=== PATIENT | female | born 1980 | race Caucasian/White ===

== ENCOUNTER 2021-12-29 02:03 | Emergency (ER) | payer MEDICAID, SELFPAY ==
[2021-12-29 02:11] VITALS: BP 145/101; PULSE 59; RESP 16; TEMP 36.6; O2SAT 97; BMI 40.7
--- NOTE | 2021-12-29 02:18 | CRLHL7_ITS ---
For Patients: As a result of the Century Cures Act, medical imaging exams and procedure reports are released immediately into your electronic medical record. You may view this report before your referring provider. If you have questions, please contact your health care provider. Indication: Flank pain Technique: Noncontrast CT abdomen and pelvis Comparison: CT abdomen and pelvis 12/23/2019 Findings: Heart size is normal. No pericardial effusion lung bases are clear. Spleen liver appears unremarkable cholecystectomy. Adrenal glands pancreas unremarkable. Normal caliber abdominal aorta. Right kidney unremarkable. Small nonobstructing left lower pole calculus. Moderate hydronephrosis and hydroureter with a 5 millimeter stone in the distal left ureter just proximal to the UVJ. Urinary bladder decompressed. No suspicious bony lesions. Impression: 1. Moderate left hydronephrosis and hydroureter with a 5 millimeter stone in the left distal ureter just proximal to the UVJ. Please note that all CT scans at this facility use dose modulation, iterative reconstruction, and/or weight-based dosing when appropriate to reduce radiation dose to as low as reasonably achievable. Dictated by Erica Velázquez MD @ 12/29/2021 3:52:22 AM (Electronically Signed)
[2021-12-29 02:27] LABS: Lactate* 0.8 mmol/L (0.5-1.9)
[2021-12-29 02:29] LABS: Basophils Absolute Auto 0.05 K/uL (0.00-0.30); Basophils Percent Auto 0.6 % (0.0-3.0); Eosinophils Absolute Auto 0.27 K/uL (0.00-0.50); Hematocrit 36.8 % (33.0-51.0); Hemoglobin* 12.8 gm/dL (12.0-16.0); Immature Granulocytes Abs Auto 0.04 K/uL (0.00-0.30); Lymphocytes Absolute Auto 2.86 K/uL (0.90-2.90); Lymphocytes Percent Auto 31.7 % (20-44); Mean Corpuscular HGB Conc 35 gm/dL (32-36); Mean Corpuscular Hemoglobin 28 pg (26-34); Mean Corpuscular Volume 81 fL (80-100); Monocytes Percent Auto 7.9 % (0.0-11.0); Neutrophils Percent Auto 56.4 % (42.0-72.0); Platelet Count* 336 K/uL (140-440); Red Blood Count 4.54 m/uL (4.00-5.20); White Blood Count* 9.03 K/uL (4.50-11.00)
[2021-12-29 02:30] LABS: Slide Review Reflex No
[2021-12-29] MEDS: ONDANSETRON 2 MG/ML inj 4 MG IVP (02:30)
[2021-12-29] MEDS: KETOROLAC 15 MG/ML inj IVP (02:30)
[2021-12-29] MEDS: 0.9 % SODIUM CHLORIDE 1000 ml 1,000 ML IV (02:31)
--- NOTE | 2021-12-29 02:31 | ED.GENADULT ---
HPI - General Adult General Date Seen: 12/29/21 Chief complaint: Flank Pain Stated complaint: Back pain radiating to abdominal Time Seen by Provider: 12/29/21 02:06 Source: patient History of Present Illness HPI narrative: Patient is a 41-year-old woman who presents with left flank pain with radiation to the left lower abdomen. Pain started on Monday, she presents in the middle of the night Monday for evaluation secondary to worsening of pain and development of associated vomiting. She says last time she had pain like this it was because of a kidney stone. Initially she thought it was related to menstrual pain because she started her period on Monday, but because it has gotten were she no longer thinks that. She has not had any associated urinary symptoms such as dysuria or frequency. She has not had fevers. She has not had diarrhea, black or bloody stools. No suspicion of . Pain is now severe and colicky. She has tried ibuprofen but that has not been significantly helpful. Related Data Home Medications Medication Instructions Recorded Confirmed dextroamphetamine-amphetamine 20 12/29/21 mg tablet Previous Rx's Medication Instructions Recorded tamsulosin 0.4 mg capsule (Flomax) 0.4 mg PO DAILY #10 caps 12/29/21 tamsulosin 0.4 mg capsule (Flomax) 0.4 mg PO DAILY #14 caps 12/29/21 Allergies Allergy/AdvReac Type Severity Reaction Status Date / Time No Known Drug Allergies Allergy Verified 12/29/21 02:13 Review of Systems Status of ROS: Reports: 10 or more systems reviewed and unremarkable except as noted in History and below [facility] Medical History Kidney stones Ovarian cyst Surgical History History of cholecystectomy Social History Smoking Status: Never smoker Do you use any of these nicotine containing products: None How often do you have a drink containing alcohol: never AUDIT-C Alcohol total score: 0 Non-prescribed substance use: denies use Exam Narrative: Exam Narrative: Vital signs as noted above. In general, an alert, nontoxic woman. Looks uncomfortable. Head: Normocephalic, atraumatic. Eyes: Pupils are equal reactive. Extraocular movements are full. Conjunctivae are normal. ENT: Mucous membranes are moist. Throat is normal. Neck: Supple without lymphadenopathy. Heart: Regular rate and rhythm. No murmur or rub. Lungs: Clear bilaterally. No increased work of breathing, crackles or wheezes. Abdomen: Diffuse left-sided tenderness without rebound guarding or rigidity. Bowel sounds present. Extremities: Well perfused. No edema. No calf tenderness. Pulses intact. Neurologic: Patient is alert and oriented to person and place. Speech is fluent. Face is symmetric. Moves all extremities equally. Affect: Normal. Skin: Warm and dry. Well perfused. Const: Vital Signs, click to edit/add: Vital Signs - 24 hr 12/29/21 02:11 Temperature 97.8 F Pulse Rate [Right Pulse Oximeter] 59 L Respiratory Rate 16 Blood Pressure [Ri ght Upper Arm] 145/101 H Pulse Oximetry 97 Oxygen Delivery Me thod Room Air Course Course Hospital Course: Will place an IV, obtain a urine specimen when able. Toradol and Zofran as well as a L of fluids to start. Will add additional medication as needed, but patient did drive here. CT scan without contrast. At this time would suspect possible kidney stone, review records shows a CT scan from 2019 at which time she did have a nonobstructing stone in the left kidney. Other considerations would include diverticulitis, colitis, bowel obstruction, pyelonephritis, ovarian pathology such as torsion, ruptured cyst, ectopic , gastritis, peptic ulcer disease, pancreatitis. Less likely gallbladder pathology, appendicitis given left-sided pain. test and UA pending. Other labs including CBC, metabolic panel, lipase, LFTs, CRP and lactate. CT scan by my review showed left-sided hydronephrosis and a 5 mm stone at the UVJ. Final radiology report is as follows:Impression: 1. Moderate left hydronephrosis and hydroureter with a 5 millimeter stone in the left distal ureter just proximal to the UVJ. Labs are reassuring. Urinalysis is negative aside from 10-25 red blood cells, squames and a few bacteria but only 2-5 white blood cells. white blood cells. There is 1+ bilirubin, but LFTs are normal as is lipase. CBC and metabolic panel are normal, as are lactate and CRP. Discussed with her that the kidney stone is on the borderline of where it will likely not pass on its own. I have prescribed Flomax and will have her push fluids and strain urine, but I have asked her to make a follow-up urology appointment tomorrow and if she does not pass the stone in the next few days will have her follow-up as an outpatient. Return at any time for severe uncontrolled pain, new symptoms such as fever chills. Ibuprofen 400 mg 3 times daily, oxycodone and Zofran as needed for symptomatic relief. Vital Signs Vital signs: Initial Vital Signs Temperature 97.8 F 12/29/21 02:11 Temperature Source Temporal Artery Scan 12/29/21 02:11 Pulse Rate 59 L 12/29/21 02:11 Pulse Rhythm 12/29/21 02:11 Respiratory Rate 16 12/29/21 02:11 Blood Pressure 145/101 H 12/29/21 02:11 Blood Pressure Mean 115 12/29/21 02:11 Blood Pressure Position Sitting 12/29/21 02:11 Pulse Oximetry 97 12/29/21 02:11 Oxygen Delivery Method 12/29/21 02:11 Vital Signs Temperature 97.8 F 12/29/21 02:11 Pulse Rate 59 L 12/29/21 02:11 Respiratory Rate 16 12/29/21 02:11 Blood Pressure 145/101 H 12/29/21 02:11 Pulse Oximetry 97 12/29/21 02:11 Oxygen Delivery Method 12/29/21 02:11 Temperature 97.8 F 12/29/21 02:11 Pulse Rate 59 L 12/29/21 02:11 Respiratory Rate 16 12/29/21 02:11 Blood Pressure 145/101 H 12/29/21 02:11 Pulse Oximetry 97 12/29/21 02:11 Oxygen Delivery Method 12/29/21 02:11 Medical Decision Making Lab Data Labs: Lab Results 12/29/21 12/29/21 12/29/21 Range/Units 02:23 02:23 02:23 WBC 9.03 (4.50-11.00) K/uL RBC 4.54 (4.00-5.20) m/uL Hgb 12.8 (12.0-16.0) gm/dL Hct 36.8 (33.0-51.0) % MCV 81 (80-100) fL MCH 28 (26-34) pg MCHC 35 (32-36) gm/dL RDW Coeff of Allen 12.0 (11.5-15.5) % Plt Count 336 (140-440) K/uL Neut % (Auto) 56.4 (42.0-72.0) % Lymph % (Auto) 31.7 (20-44) % [place] % (Auto) 7.9 (0.0-11.0) % Eos % (Auto) 3.0 (0.0-7.0) % Baso % (Auto) 0.6 (0.0-3.0) % Neut # (Auto) 5.10 (1.7-7.0) K/uL Lymph # (Auto) 2.86 (0.90-2.90) K/uL [place] # (Auto) 0.70 (0.00-0.90) K/UL Eos # (Auto) 0.27 (0.00-0.50) K/uL Baso # (Auto) 0.05 (0.00-0.30) K/uL Abs Immat Gran (auto) 0.04 (0.00-0.30) K/uL Sodium 139 (135-149) mmol/L Potassium 3.6 (3.6-5.1) mmol/L Chloride 106 (96-114) mmol/L Carbon Dioxide 24 (20-32) mmol/L BUN 20 (5-24) mg/dL Creatinine 0.8 (0.5-1.5) mg/dL Estimated Creat Clear 78.10 Estimated GFR 96 ml/min Glucose 117 H (60-115) mg/dL Lactate (0.5-1.9) mmol/L Calcium 8.9 (8.4-10.6) mg/dL Total Bilirubin 0.4 (0.1-1.5) mg/dL Direct Bilirubin 0.2 (0.0-0.5) mg/dL AST 26 (12-35) U/L ALT 20 (4-35) U/L Alkaline Phosphatase 69 (40-150) U/L C-Reactive Protein 0.8 (0.5-1.0) mg/dL Total Protein 7.4 (6.0-8.3) g/dL Albumin 4.2 (3.3-5.0) g/dL Lipase 104 (23-300) U/L Urine Color (Yellow) Urine Appearance (Clear) Urine pH (5.0-8.5) Ur Specific [place] (1.000-1.030) Urine Protein (Negative) Urine Glucose (UA) (Negative) Urine Ketones (Negative) Urine Blood (Negative) Urine Nitrite (Negative) Urine Bilirubin (Negative) Urine Urobilinogen (0.2-1.0) Ur Leukocyte Esterase (Negative) Urine RBC (0-2) Urine WBC (0-5) Ur Squamous Epith Cells (None-Few) Amorphous Sediment (None) Urine Bacteria (None) Urine HCG, Qual (Negative) 12/29/21 12/29/21 Range/Units 02:23 03:22 WBC (4.50-11.00) K/uL RBC (4.00-5.20) m/uL Hgb (12.0-16.0) gm/dL Hct (33.0-51.0) % MCV (80-100) fL MCH (26-34) pg MCHC (32-36) gm/dL RDW Coeff of Allen (11.5-15.5) % Plt Count (140-440) K/uL Neut % (Auto) (42.0-72.0) % Lymph % (Auto) (20-44) % [place] % (Auto) (0.0-11.0) % Eos % (Auto) (0.0-7.0) % Baso % (Auto) (0.0-3.0) % Neut # (Auto) (1.7-7.0) K/uL Lymph # (Auto) (0.90-2.90) K/uL [place] # (Auto) (0.00-0.90) K/UL Eos # (Auto) (0.00-0.50) K/uL Baso # (Auto) (0.00-0.30) K/uL Abs Immat Gran (auto) (0.00-0.30) K/uL Sodium (135-149) mmol/L Potassium (3.6-5.1) mmol/L Chloride (96-114) mmol/L Carbon Dioxide (20-32) mmol/L BUN (5-24) mg/dL Creatinine (0.5-1.5) mg/dL Estimated Creat Clear Estimated GFR ml/min Glucose (60-115) mg/dL Lactate 0.8 (0.5-1.9) mmol/L Calcium (8.4-10.6) mg/dL Total Bilirubin (0.1-1.5) mg/dL Direct Bilirubin (0.0-0.5) mg/dL AST (12-35) U/L ALT (4-35) U/L Alkaline Phosphatase (40-150) U/L C-Reactive Protein (0.5-1.0) mg/dL Total Protein (6.0-8.3) g/dL Albumin (3.3-5.0) g/dL Lipase (23-300) U/L Urine Color Yellow (Yellow) Urine Appearance Cloudy A (Clear) Urine pH 5.5 (5.0-8.5) Ur Specific [place] >= 1.030 (1.000-1.030) Urine Protein 2+ A (Negative) Urine Glucose (UA) Negative (Negative) Urine Ketones Negative (Negative) Urine Blood 3+ A (Negative) Urine Nitrite Negative (Negative) Urine Bilirubin 1+ A (Negative) Urine Urobilinogen 0.2 (0.2-1.0) Ur Leukocyte Esterase Negative (Negative) Urine RBC 10-25 A (0-2) Urine WBC 2-5 (0-5) Ur Squamous Epith Cells Moderate A (None-Few) Amorphous Sediment Moderate A (None) Urine Bacteria Few A (None) Urine HCG, Qual Negative (Negative) Discharge Plan Discharge Clinical Impression: Kidney stone on left side Patient Disposition: Home, Self-Care Condition: Improved Instructions: Kidney Stones (ED) Additional Instructions: Ibuprofen 400 mg 3 times daily with food. Zofran if needed for nausea. Oxycodone for uncontrolled pain. Strain urine, push fluids. Your stone is about 5 mm in size, which means that there is a good chance that it will not pass on its own. You will likely need urology follow-up. You can call [place] [facility] to arrange this. Return at any time for severe uncontrolled pain or new symptoms such as fever or chills. Prescriptions: New tamsulosin [Flomax] 0.4 mg capsule 0.4 mg PO DAILY Qty: 14 2RF tamsulosin [Flomax] 0.4 mg capsule 0.4 mg PO DAILY Qty: 10 2RF No Action dextroamphetamine-amphetamine 20 mg tablet Label Comments: TAKE 1 TABLET BY MOUTH EVERY DAY Follow Up/Referrals: Joan Vallecillo PA-C [Primary Care Provider] - Stand Alone Forms: [employer] Info Instructions
[2021-12-29 02:42] LABS: Albumin* 4.2 g/dL (3.3-5.0)
[2021-12-29 02:43] LABS: Chloride* 106 mmol/L (96-114); Potassium* 3.6 mmol/L (3.6-5.1); Sodium* 139 mmol/L (135-149)
[2021-12-29 02:45] LABS: Alanine Aminotransferase* 20 U/L (4-35); Alkaline Phosphatase* 69 U/L (40-150); Aspartate Amino Transferase* 26 U/L (12-35); Bilirubin Direct* 0.2 mg/dL (0.0-0.5); Bilirubin Total* 0.4 mg/dL (0.1-1.5); Lipase* 104 U/L (23-300); Total Protein* 7.4 g/dL (6.0-8.3)
[2021-12-29 02:46] LABS: Creatinine* 0.8 mg/dL (0.5-1.5); Estimated Glomerular Filt Rate 96 ml/min
[2021-12-29 02:47] LABS: Blood Urea Nitrogen* 20 mg/dL (5-24); Calcium* 8.9 mg/dL (8.4-10.6); Carbon Dioxide* 24 mmol/L (20-32); Glucose* 117 mg/dL (60-115)
[2021-12-29 02:49] LABS: C Reactive Protein* 0.8 mg/dL (0.5-1.0)
[2021-12-29 03:28] LABS: Appearance Urine Cloudy (Clear); Bilirubin Urine 1+ (Negative); Blood Urine 3+ (Negative); Color Urine Yellow (Yellow); Glucose Urine Negative (Negative); Ketones Urine Negative (Negative); Leukocyte Esterase Urine Negative (Negative); Nitrite Urine Negative (Negative); Protein Urine 2+ (Negative); Specific Gravity Urine >= 1.030 (1.000-1.030); Urobilinogen Urine 0.2 (0.2-1.0); pH Urine 5.5 (5.0-8.5)
[2021-12-29 03:31] LABS: Amorphous Sediment Urine Moderate; Bacteria Urine Few; Squamous Epithelial Cell Urine Moderate (None-Few); Ur HCG Qualitative* Negative (Negative)
[2021-12-29 04:22] VITALS: BP 133/91; PULSE 62; RESP 16; TEMP 36.6
== END 2021-12-29 04:22 | disposition home or self-care (01) ==
PROVIDERS: Emergency Provider Emergency Medicine; PCP Physician Assistant Medical
DX: N20.0 Calculus of kidney (principal)
CPT/HCPCS: 36415; 74176; 80048; 80076; 81001; 81025; 83605; 83690; 85025; 86140; 87086; 96374; 96375; 99284; J1885; J2405; J7030

== ENCOUNTER 2021-12-30 16:50 | Emergency (ER) | payer MEDICAID, SELFPAY ==
[2021-12-30 17:00] VITALS: BP 135/80; PULSE 65; RESP 16; TEMP 37.2; O2SAT 98; BMI 40.7
--- NOTE | 2021-12-30 17:38 | ED_ITS ---
HPI - Abdominal Pain General Chief Complaint: Abdominal Pain Stated Complaint: BACK/STOMACH/PELVIC PAIN Time Seen by Provider: 12/30/21 16:59 History of Present Illness HPI narrative: This 41-year-old female comes in with recurrence of left-sided abdominal pain. She was seen yesterday and diagnosed with a 5 mm kidney stone at the ureterovesical junction. She received medication that helped her feel better yesterday. She was prescribed oxycodone but did not take this medicine today because she went to work. Toward the end of her shift she had sudden onset of severe pain and came in again in here for evaluation and treatment. At the time of her arrival here her pain is improved. Related Data Home Medications Medication Instructions Recorded Confirmed dextroamphetamine-amphetamine 20 12/29/21 mg tablet Previous Rx's Medication Instructions Recorded tamsulosin 0.4 mg capsule (Flomax) 0.4 mg PO DAILY #10 caps 12/29/21 tamsulosin 0.4 mg capsule (Flomax) 0.4 mg PO DAILY #14 caps 12/29/21 ketorolac 10 mg tablet 10 mg PO Q8H 5 days #15 tabs 12/30/21 Allergies Allergy/AdvReac Type Severity Reaction Status Date / Time No Known Drug Allergies Allergy Verified 12/29/21 02:13 Review of Systems Status of ROS Reports: 10 or more systems reviewed and unremarkable except as noted in History and below Narrative Constitutional: No fevers, no weight gain or loss. Eyes: No discharge. No vision changes. HENT: No congestion, no sore throat, no ear pain. Cardiovascular: No chest pain, no palpitations. Respiratory: No shortness of breath, no wheezes, no cough. Gastrointestinal: No vomiting, no diarrhea. Abdominal pain and flank pain Related to kidney stone. Genitourinary: No dysuria, no hematuria. Musculoskeletal: Normal range of motion. Skin: No rashes, no pruritis. Neurological: No dizziness, weakness, sensory change, speech change. Endo/Heme/Allergies: No bruising or bleeding. No polydipsia. Pysch: no suicidality, no anxiety, no insomnia. All other systems reviewed and are negative. PFSH PFSH Medical History Kidney stones Ovarian cyst Surgical History History of cholecystectomy Social History Smoking Status: Never smoker Do you use any of these nicotine containing products: None How often do you have a drink containing alcohol: never AUDIT-C Alcohol total score: 0 Non-prescribed substance use: denies use Exam Narrative: Exam Narrative: Constitutional: Well-developed, well-nourished, no acute distress. HEENT: Normocephalic, atraumatic. Neck: Normal range of motion. Nontender. Supple. Heart: Intact distal pulses. Lungs: No chest discomfort. No wheezes, rhonchi, or rales. Abdomen: Diffuse tenderness. Normal bowel sounds. No rebound tenderness. Back: Normal range of motion. Extremities: Normal range of motion. No injury. Skin: Intact. No rash. Warm. No erythema or pallor. Neurologic: No altered sensation. No weakness. Alert and oriented. Psychiatric: No suicidality. No anxiety or depression. No insomnia. Nursing notes and vitals signs are reviewed. Const: Vital Signs, click to edit/add: Vital Signs - 24 hr 12/30/21 17:00 Temperature 98.9 F Pulse Rate [Left P ulse Oximeter] 65 Respiratory Rate 16 Blood Pressure [Le ft Upper Arm] 135/80 Pulse Oximetry 98 Oxygen Delivery Me thod Room Air Course Vital Signs Vital signs: Initial Vital Signs Temperature 98.9 F 12/30/21 17:00 Temperature Source Temporal Artery Scan 12/30/21 17:00 Pulse Rate 65 12/30/21 17:00 Pulse Rhythm 12/30/21 17:00 Pulse Strength 3+ Normal 12/30/21 17:00 Respiratory Rate 16 12/30/21 17:00 Blood Pressure 135/80 12/30/21 17:00 Blood Pressure Mean 98 12/30/21 17:00 Blood Pressure Position Sitting 12/30/21 17:00 Pulse Oximetry 98 12/30/21 17:00 Oxygen Delivery Method 12/30/21 17:00 Vital Signs Temperature 98.9 F 12/30/21 17:00 Pulse Rate 65 12/30/21 17:00 Respiratory Rate 16 12/30/21 17:00 Blood Pressure 135/80 12/30/21 17:00 Pulse Oximetry 98 12/30/21 17:00 Oxygen Delivery Method 12/30/21 17:00 Temperature 98.9 F 12/30/21 17:00 Pulse Rate 65 12/30/21 17:00 Respiratory Rate 16 12/30/21 17:00 Blood Pressure 135/80 12/30/21 17:00 Pulse Oximetry 98 12/30/21 17:00 Oxygen Delivery Method 12/30/21 17:00 MDM - Abdominal Pain MDM Narrative Medical decision making narrative: This patient comes in with a recurrence of renal colic related to a ureteral calculus at the Ureterovesical junction. This pain was severe prior to arrival but is improved now. She had not taken any of her pain medicines that were prescribed for her because she did not want to be impaired while at work today. I discussed diagnosis and treatment options and the patient elected to have a IM injection of Toradol. She received 30 mg of Toradol. She did drive here and would like to drive home. She has oxycodone that she can use as needed for pain relief. I did also provide a prescription for Toradol. Discharge Plan Discharge Clinical Impression: Kidney stone on left side Patient Disposition: Home, Self-Care Condition: Stable Instructions: Kidney Stones (ED) Additional Instructions: Take medication as needed and indicated. Follow up with MD or return if worsening symptoms occur. Prescriptions: New ketorolac 10 mg tablet 10 mg PO Q8H 5 Days Qty: 15 0RF No Action dextroamphetamine-amphetamine 20 mg tablet Label Comments: TAKE 1 TABLET BY MOUTH EVERY DAY tamsulosin [Flomax] 0.4 mg capsule 0.4 mg PO DAILY Qty: 14 2RF tamsulosin [Flomax] 0.4 mg capsule 0.4 mg PO DAILY Qty: 10 2RF Follow Up/Referrals: Joan Vallecillo PA-C [Primary Care Provider] - Stand Alone Forms: [employer] Info Instructions
== END 2021-12-30 18:01 | disposition home or self-care (01) ==
PROVIDERS: Emergency Provider Emergency Medicine Emergency Medical Services; PCP Physician Assistant Medical
DX: N20.0 Calculus of kidney (principal)
CPT/HCPCS: 99283; 99284

== ENCOUNTER 2022-08-26 07:28 | Outpatient (CLI) | payer MEDICAID, SELFPAY ==
--- OUTSIDE RECORDS SUMMARY | 2022-08-26 07:30 | XMS_ITS | Continuity of Care Document ---
Author Name Unknown Organization [facility] Address [address] [place] [address] Phone Care Team Providers Care Egg Setter Name Role Phone Will Taco GIANG Unavailable Unavailabl e Allergies, Adverse Reactions, Alerts Substance Reaction Status Criticality latex Rash Active No Information Medications Medication Instructions Dosage Effective Dates (start - stop) Status Comments tramadol 50 mg tablet take 1 tablet by o ral route every 12 hours as needed 50 MG - Active famotidine 20 mg tablet take 1 tablet by oral route 2 times every day 20 MG - Active gabapentin 300 mg capsule take 1 capsule by oral route 2 times every day 300 MG - Active dextroamphetamine-amp hetamine ER 10 mg 24hr capsule,extend release take 1 capsule by oral route every day in the morning upon awakening 10 MG - Active sumatriptan 100 mg tablet take 1 tablet by oral route after onset of migraine; may repeat after 2 hours if headache returns,not to exceed 200mg in 24hrs 100 MG - Active Procedures Procedure Date OFFICE VISIT, EST TELEMEDICINE OFFICE/OUTPATIENT VISIT, EST Drug Urine Toxology With Chromatography OFFICE/OUTPATIENT VISIT, NEW Alcohol/drug screening Advance Directives Directive Yes / No Effective Date File Name No Information Encounters Encounter Description Practice Location Reason(s) For Visit Diagnoses Date Provider Providers Copied on Encounter [facility], [address] [place], [id number] , tel:[phone] [facility] No Information 2 Will Taco. [address] [place], [id number] , [place]. [phone] OFFICE VISIT, [facility] TELEMEDICINE [facility], [address] [place] [address], [id number] , [place] tel:[phone] Telehealth low back pain (chief complaint) Other intervertebral disc degeneration, lumbar regionChronic migraine w/o aura, intractable, w/o stat migrChronic pain syndromeGERD without esophagitisOther buttermaker helper (current) drug therapy 2 0 Nyongesa Michelle. [address] [facility] [address], [place], [place], [id number] , [place]. tel:[phone] Referring Provider: Taco Xiong, [address] [place] [address], [id number]. [phone] OFFICE/OUTPAT IENT VISIT, [facility], [address] [place] [address], [id number] , [place] tel:[phone] [facility] Back Pain (chief complaint) Chronic pain syndromeOther intervertebral disc degeneration, lumbar regionChronic migraine w/o aura, intractable, w/o stat migrGERD without esophagitisSleep apnea, unspecifiedOther senior care (current) drug therapy 0 Nyongesa Michelle. [address] [facility] [address], [place], [place], [id number] , [place]. tel:[phone] Referring Provider: Taco Xiong, [address] [place] [address], [id number]. [phone] OFFICE/OUTPAT IENT VISIT, [facility], [address] [place] [address], [id number] , [place] tel:[phone] [facility] Back Pain (chief complaint) Chronic pain syndromeOther intervertebral disc degeneration, lumbar regionChronic migraine w/o aura, intractable, w/o stat migrGERD without esophagitisSleep apnea, unspecifiedEncoun ter for screening for other disorderEncounter for therapeutic drug level monitoringOther senior care (current) drug therapy 0 Nyongesa Michelle. [address] [facility] [address], [place], [id number] , . tel:[phone] Referring Provider: Mick Murphy, [facility] [address], [place], [address]. tel:[phone] Family History Family Member Type Diagnosis Age At Onset Mother Problem (finding) chronic pain Payers Payer name Insurance type Covered constitution party ID Authordarby martines(s) Olena ZEPEDA [id number] Social History Type Description Quantity Date Captured Comments Sex Female Smoking Status No Information Chief Complaint And Reason For Visit No Information Reason For Referral Reason For Referral No Information Plan Of Treatment Date Type Action Status Future Order: Lab Order Drug Tram t Def 22+ Classes (G0483), Ordered on: Ordered History Of Present Illness Encounter Date Complaint History Of Prese nt Illness low back pain Severity level i s mild-moderate. The problem is improving. It occurs persistently. Location of pain is lower back. Pain is radiated to the buttocks.The patient describes the pain as an ache and burning. Symptoms are aggravated by bending, lifting, twisting and walking. Symptoms are relieved by ice, pain meds/drugs, rest and medical cannabis. low back pain (comments) Patient is here and f/u on medical cannabis certification via JOHN visit.She has stopped taking tramadol due improved back pain and anxiety. She is going [place] [facility] in [place], denies major side effects from medical cannabis. She however wondering if medical cannabis is making her GERD worse.No other concerns Back Pain Severity level i s 7. Duration: chronic. The problem is stable. It occurs persistently. Location of pain is lower back.The patient describes the pain as an ache, sharp and tingling. Symptoms are aggravated by bending, lifting, lying/rest, sitting and standing. Symptoms are relieved by massage. Back Pain (comments) Isha is here for a followup after initial consult. Low back pain persists. She would like to proceed with the medical cannabis certification.Tramadol to be prescribed by pcpNo other concerns today. Back Pain Severity level i s 7. Duration: chronic. It occurs persistently. Location of pain is upper back, middle back and lower back. Pain is radiated to the right calf, right foot and right thigh.The patient describes the pain as an ache, stabbing and pins and needles. Symptoms are aggravated by lifting, lying/rest, sitting, standing and walking. Symptoms are relieved by heat. Back Pain (comments) Patient is here for an initial consult regarding back pain with right radicular symptoms, denies weakness in lower extremities and bowel and bladder dysfunction.. The patient is referred by Dr. Yuan Murphy. Pain began many years ago with no hx of injury and has worsened over time. Hx of migraine pain- reports 1 migraine every 2 weeks. Symptoms include nausea, denies aura. Patient presents with previous outside records which were reviewed during the OV today. She had completed lumbar MRI imaging in the past. Treatment tried; PT at [facility] in 2018 which provided limited benefit. Most recent L4-5 TESI injection on 05/21/19 provided limited pain relief. Gabapentin - for RLS - not helping with pain.Topamax - could not tolerate d/t dizzinessRequesting [facility] to [facility] for chronic pain management. She is currently prescribed Tramadol 50mg PRN which provides some pain relief but not as much as she would like. Also taking Sumatriptan for migraine pain which provides benefit. Interested in pursuing certification for medical cannabis. Currently uses CBD oil which provides benefit for her anxiety and depression but does not touch her pain. No other concerns today. Functional Status Date Functional Assessmen t No Information Instructions Date Instruction Additional Infor mation No Information Assessments Type Assessment Date No Information Patient Care Teams Name Effective Dates (start - stop) Status Members No Information
== END 2022-08-26 07:29 | disposition home or self-care (01) ==
LOC: INJ CL 07:28
PROVIDERS: PCP Physician Assistant Medical; Visit Provider Family Medicine
DX: M54.16 Radiculopathy, lumbar region (principal); M51.36 Other intervertebral disc degeneration, lumbar region
CPT/HCPCS: 62323; J0702; Q9966

== ENCOUNTER 2023-01-23 19:11 | Emergency (ER) | payer MEDICAID, SELFPAY ==
--- OUTSIDE RECORDS SUMMARY | 2023-01-23 19:17 | XMS_ITS | Continuity of Care Document ---
Author Name Unknown Organization [facility] Address [address] [facility] [place] [address] Phone Care Team Providers Care Civil Cad Designer Name Role Phone Florina De Guzman CNP Unavailable Unavailable Allergies, Adverse Reactions, Alerts Substance Reaction Status Criticality latex Rash Active No Information Medications Medication Instructions Dosage Effective Dates (start - stop) Status Comments hydrocodone 7.5 mg-acetaminophen 325 mg tablet take 1 tablet by oral route every 6 hours as needed for pain for chronic pain 1 tablet - Active supplemental Rx Ubrelvy 50 mg tablet take 1 tablet by oral route once may repeat dose once after 2 hours if needed as needed 50 MG - Active Emgality Pen 120 mg/mL subcutaneous pen injector inject (120MG) by subcutaneous route every month in the abdomen, thigh, outer upper arm, or buttocks 120 MG - Active ibuprofen 200 mg tablet take 1 tablet by oral route every 6 hours as needed with food as needed 200 MG - Active fluoxetine 40 mg capsule take 1 capsule by oral route every day in the morning 40 MG - Active dextroamphetamine- amphetamine ER 10 mg 24hr capsule,extend release take 1 capsule by oral route every day in the morning upon awakening 10 MG - Active hydrocodone 7.5 mg-acetaminophen 325 mg tablet take 1 tablet by oral route every 6 hours as needed for pain for chronic pain 1 tablet - No Longer Active hydrocodone 5 mg-acetaminophen 325 mg tablet take 1 -2 tablet by ORAL route every day as needed, max 4 for pain for chronic pain - No Longer Active Procedures Procedure Date OFFICE/OUTPATIENT VISIT, EST Drug test def 8-14 classes Drug Urine Toxology With Chromatography INTERLAMINAR CRV OR THRC BILATERAL INJECT SACROILIAC JOINT OFFICE/OUTPATIENT VISIT, EST RF Lumb/Sacral Single Level BILATERAL Ju RF Lumb/Sacral 2nd Level RIGHT RF Lumb/Sacral 2nd Level LEFT OFFICE/OUTPATIENT VISIT, EST OFFICE/OUTPATIENT VISIT, EST Facet Jt In Or MBB j Lumbar BILATERAL Ju Facet Inj Or MBB Lumbar 2nd Level BILATE RAL Facet Jt In Or MBB j Lumbar BILATERAL Ma Facet Inj Or MBB Lumbar 2nd Level BILATE RAL OFFICE/OUTPATIENT VISIT, EST Drug test def 8-14 classes Drug Urine Toxology With Chromatography OFFICE/OUTPATIENT VISIT, EST OFFICE VISIT, EST TELEMEDICINE OFFICE/OUTPATIENT VISIT, EST Drug Urine Toxology With Chromatography OFFICE/OUTPATIENT VISIT, NEW Alcohol/drug screening Advance Directives Directive Yes / No Effective Date File Name No Information Encounters Encounter Description Practice Location Reason(s) For Visit Diagnoses Date Provider Providers Copied on Encounter [facility], [address] [place] [address], [id number] , [place] [phone] [facility] [place] No Information 3 Gege Heaton. [address] [place], [place], [id number] , [place]. tel:[phone] OFFICE/OUTPAT IENT VISIT, EST [facility], [address] [place], [place], [id number] , [place] tel:[phone] [facility] low back pain (chief complaint) nursing home (current) use of opiate analgesicChronic migraine w/o aura, intractable, w/o stat migrChronic pain syndromeSacroilii tis, not elsewhere classifiedRadicul opathy, cervicothoracic regionRadiculopat hy, lumbar regionParesthesia of skinEncounter for therapeutic drug level monitoring Sep-0 3 Jan Martinez. [id number] On License Of [facility] [address], [place], [place], [id number] , [place]. tel:[phone] Referring Provider: Taco Xiong, [address] [place] [address], [id number]. tel:[phone] [facility], [address] [place] [address], [id number] , [place] tel:[phone] [facility] No Information Sep-0 3 Jan Martinez. [id number] On License Of [facility] [address], [place], [place], [id number] , [place]. tel:[phone] [facility], [address] [place] [address], [id number] , [place] tel:[phone] [facility] Radiculopathy, cervicothoracic region 3 Latosha España. [address] [place] [address], [id number] , [place]. tel:[phone] Referring Provider: Taco Xiong, [address] [place] [address], [id number]. [phone] [facility], [address] [place] [address], [id number] , [place] tel:[phone] [facility] Sacroiliitis, not elsewhere classified 3 Latosha España. [address] [place] [address], [id number] , [place]. tel:[phone] Referring Provider: Taco Xiong, [address] [place] [address], [id number]. [phone] OFFICE/OUTPAT IENT VISIT, EST [facility], [address] [place] [address], [id number] , [place] tel:[phone] [facility] low back pain (chief complaint) Chronic migraine w/o aura, intractable, w/o stat migrChronic pain syndromeOther spondylosis, lumbar regionRadiculopat hy, cervicothoracic regionRadiculopat hy, lumbar regionParesthesia of skinLong term (current) use of opiate analgesicSacroili itis, not elsewhere classified 3 Nyongesa Michelle. [address] [facility] [address], [place], [id number] , [place]. tel:[phone] Referring Provider: Taco Xiong, [address] [place] [address], [id number]. [phone] [facility], [address] [place] [address], [id number] , [place] [phone] [facility] Other spondylosis, lumbar region 3 Ny De Anda. [address] [place] [address], [id number] , [place]. tel:[phone] Referring Provider: Taco Xiong, [address] [place] [address], [id number]. [phone] OFFICE/OUTPAT IENT VISIT, [facility], [address] [place] [address], [id number] , [place] tel:[phone] [facility] low back pain (chief complaint) Chronic migraine w/o aura, intractable, w/o stat migrChronic pain syndromeOther spondylosis, lumbar regionRadiculopat hy, cervicothoracic regionRadiculopat hy, lumbar regionParesthesia of skinLong term (current) use of opiate analgesic 3 Nyongesa Michelle. [address] [facility] [address], [place], [id number] , [place]. [phone] Referring Provider: Taco Xiong, [address] [place] [address], [id number]. tel:[phone] OFFICE/OUTPAT IENT VISIT, [facility], [address] [place] [address], [id number] , [place] tel:[phone] [facility] [place] low back pain (chief complaint) Chronic migraine w/o aura, intractable, w/o stat migrChronic pain syndromeOther spondylosis, lumbar regionRadiculopat hy, cervicothoracic regionRadiculopat hy, lumbar regionLong term (current) use of opiate analgesicParesthe alfonzo of skin 3 Nyongesa Michelle. [id number] [place] [address] [address], [place], [id number] , [place]. tel:[phone] Referring Provider: Taco Xiong, [address] [place] [address], [id number]. [phone] [facility], [address] [place] [address], [id number] , [place] tel:[phone] [facility] Other spondylosis, lumbar region 3 Jan Michelle. [id number] [place] [address] [address] [facility] [address], [place], [id number] , [place]. tel:[phone] [facility], [address] [place] [address], [id number] , [place] tel:[phone] [facility] Other spondylosis, lumbar region 3 Ny De Anda. [address] [place] [address], [id number] , [place]. tel:[phone] Referring Provider: Taco Xiong, [address] [place] [address], [id number]. [phone] [facility], [address] [place] [address], [id number] , [place] tel:[phone] [facility] Other spondylosis, lumbar region 3 Nychachasa Michelle. [address] [place] [address] [address], [place], [id number] , [place]. tel:[phone] [facility], [address] [place] [address], [id number] , [place] tel:[phone] [facility] Other spondylosis, lumbar region 3 Ny De Anda. [address] [place] [address], [id number] , [place]. tel:[phone] Referring Provider: Taco Xiong, [address] [place] [address], [id number]. tel:[phone] OFFICE/OUTPAT IENT VISIT, [facility], [address] [place] [address], [id number] , [place] tel:[phone] [facility] low back pain (chief complaint) Chronic migraine w/o aura, intractable, w/o stat migrChronic pain syndromeOther spondylosis, lumbar regionRadiculopat hy, cervicothoracic regionRadiculopat hy, lumbar regionLong term (current) use of opiate analgesic 3 Nyongesa Martinez. [id number] [place] [address] [address], [place], [id number] , [place]. tel:[phone] Referring Provider: Taco Xiong, [address] [place] [address], [id number]. tel:[phone] [facility], [address] [place] [address], [id number] , [place] tel:[phone] [facility] No Information 3 Jan Martinez. [address] [place] [address] [address], [place], [id number] , [place]. tel:[phone] OFFICE/OUTPAT IENT VISIT, [facility], [address] [place] [address], [id number] , [place] [phone] [facility] low back pain (chief complaint) Chronic migraine w/o aura, intractable, w/o stat migrChronic pain syndromeRadiculop athy, lumbar regionRadiculopat hy, cervicothoracic regionLong term (current) use of opiate analgesicEncounte r for therapeutic drug level monitoringOther spondylosis, lumbar region 3 Jan Martinez. [address] On License Of [facility] [address], [place], [id number] , [place]. tel:[phone] Referring Provider: Taco Xiong, [address] [place] [address], [id number]. [phone] OFFICE VISIT, [facility] TELEMEDICINE [facility], [address] [place] [address], [id number] , [place] tel:[phone] [facility] low back pain (chief complaint) Other intervertebral disc degeneration, lumbar regionChronic migraine w/o aura, intractable, w/o stat migrChronic pain syndromeGERD without esophagitisOther terminal operations manager (current) drug therapy 0 Nyongesa Michelle. [id number] On License Of [facility] [address], [place], [place], [id number] , [place]. tel:[phone] Referring Provider: Taco Xiong, [address] [place] [address], [id number]. [phone] OFFICE/OUTPAT IENT VISIT, [facility], [address] [place] [address], [id number] , [place] tel:[phone] [facility] Back Pain (chief complaint) Chronic pain syndromeOther intervertebral disc degeneration, lumbar regionChronic migraine w/o aura, intractable, w/o stat migrGERD without esophagitisSleep apnea, unspecifiedOther terminal operations manager (current) drug therapy 0 Nyongesa Michelle. [id number] On License Of [facility] [address], [place], [place], [id number] , [place]. tel:[phone] Referring Provider: Taco Xiong, [address] [place] [address], [id number]. tel:[phone] OFFICE/OUTPAT IENT VISIT, [facility], [address] [place] [address], [id number] , [place] tel:[phone] [facility] Back Pain (chief complaint) Chronic pain syndromeOther intervertebral disc degeneration, lumbar regionChronic migraine w/o aura, intractable, w/o stat migrGERD without esophagitisSleep apnea, unspecifiedEncoun ter for screening for other disorderEncounter for therapeutic drug level monitoringOther correction (current) drug therapy 0 Nyongesa Michelle. [address] [facility] [address], [place], [id number] , [place]. tel:[phone] Referring Provider: Mick Murphy, [facility] [address], [place], [address]. tel:[phone] Family History Family Member Type Diagnosis Age At Onset Mother Problem (finding) chronic pain Payers Payer name Insurance type Covered green party ID [facility] [id number] Social History Type Description Quantity Date Captured Comments Sex Female Smoking Status No Information Chief Complaint And Reason For Visit No Information Reason For Referral Reason For Referral No Information Plan Of Treatment Date Type Action Status Goal Review Allergy L ist. Due on due Goal Unhealthy drug u se screening. Due on due Goal Weight. Due on d ue Goal Tobacco Use. Due on due Goal Update Social Hi story. Due on due Goal Lipid panel. Due on due Goal OARS. Due on due Goal Order Annual PT. Due on due Goal AST (SGOT). Due on due Goal BLACK JACK DEALER Paperwork. Due on due Goal ALT (SGPT). Due on due Goal FREIGHT SEPARATOR Scanned. Due on due Goal Creatinine. Due on due Goal UDT. Due on due Goal HPV. Due on due Goal Height. Due on d ue Goal PHQ-9. Due on du e Goal Medication Recon ciliation. Due on due Goal Hepatitis C scre ening. Due on due Goal AST (SGOT). Due on due Goal OARS. Due on due Goal Creatinine. Due on due Goal Order Annual PT. Due on due Goal BLACK JACK DEALER Paperwork. Due on due Goal UDT. Due on due Goal Hepatitis C scre ening. Due on due Goal Medication Recon ciliation. Due on due Goal Unhealthy drug u se screening. Due on due Goal Tobacco Use. Due on due Goal HPV. Due on due Goal PHQ-9. Due on du e Goal Review Allergy L ist. Due on due Goal Lipid panel. Due on due Goal Weight. Due on d ue Goal Update Social Hi story. Due on due Goal Height. Due on d ue Goal FREIGHT SEPARATOR Scanned. Due on due Goal ALT (SGPT). Due on due Goal FREIGHT SEPARATOR Scanned. Due on due Goal UDT. Due on due Goal BLACK JACK DEALER Paperwork. Due on due Goal AST (SGOT). Due on due Goal ALT (SGPT). Due on due Goal OARS. Due on due Goal Order Annual PT. Due on due Goal Creatinine. Due on due Goal Hepatitis C scre ening. Due on due Goal Height. Due on d ue Goal Unhealthy drug u se screening. Due on due Goal HPV. Due on due Goal Weight. Due on d ue Goal Update Social Hi story. Due on due Goal Lipid panel. Due on due Goal Tobacco Use. Due on due Goal Review Allergy L ist. Due on due Goal PHQ-9. Due on du e Goal Medication Recon ciliation. Due on due Goal FREIGHT SEPARATOR Scanned. Due on due Goal BLACK JACK DEALER Paperwork. Due on due Goal UDT. Due on due Goal OARS. Due on due Goal AST (SGOT). Due on due Goal ALT (SGPT). Due on due Goal Order Annual PT. Due on due Goal Creatinine. Due on due Goal HPV. Due on due Goal Review Allergy L ist. Due on due Goal PHQ-9. Due on du e Goal Unhealthy drug u se screening. Due on due Goal Lipid panel. Due on due Goal Weight. Due on d ue Goal Medication Recon ciliation. Due on due Goal Height. Due on d ue Goal Update Social Hi story. Due on due Goal Tobacco Use. Due on due Goal Hepatitis C scre ening. Due on due Goal PHQ-9. Due on du e Goal Weight. Due on d ue Goal Update Social Hi story. Due on due Goal Tobacco Use. Due on due Goal Hepatitis C scre ening. Due on due Goal Height. Due on d ue Goal Review Allergy L ist. Due on due Goal Unhealthy drug u se screening. Due on due Goal Lipid panel. Due on due Goal Medication Recon ciliation. Due on due Goal HPV. Due on due Goal AST (SGOT). Due on due Goal Creatinine. Due on due Goal FREIGHT SEPARATOR Scanned. Due on due Goal Order Annual PT. Due on due Goal UDT. Due on due Goal BLACK JACK DEALER Paperwork. Due on due Goal ALT (SGPT). Due on due Goal OARS. Due on due Goal Review Allergy L ist. Due on due Goal Medication Recon ciliation. Due on due Goal Tobacco Use. Due on due Goal Height. Due on d ue Goal Weight. Due on d ue Goal Unhealthy drug u se screening. Due on due Goal Lipid panel. Due on due Goal HPV. Due on due Goal Order Annual PT. Due on due Goal OARS. Due on due Goal BLACK JACK DEALER Paperwork. Due on due Goal AST (SGOT). Due on due Goal FREIGHT SEPARATOR Scanned. Due on due Goal Creatinine. Due on due Goal UDT. Due on due Goal ALT (SGPT). Due on due Goal PHQ-9. Due on du e Goal Update Social Hi story. Due on due Goal Hepatitis C scre ening. Due on due Goal ALT (SGPT). Due on due Goal BLACK JACK DEALER Paperwork. Due on due Goal Update Social Hi story. Due on due Goal Height. Due on d ue Goal Medication Recon ciliation. Due on due Goal Unhealthy drug u se screening. Due on due Goal Weight. Due on d ue Goal Review Allergy L ist. Due on due Goal Lipid panel. Due on due Goal PHQ-9. Due on du e Goal Hepatitis C scre ening. Due on due Goal HPV. Due on due Goal Tobacco Use. Due on due Goal AST (SGOT). Due on due Goal UDT. Due on due Goal Order Annual PT. Due on due Goal OARS. Due on due Goal Creatinine. Due on due Goal FREIGHT SEPARATOR Scanned. Due on due Goal AST (SGOT). Due on due Goal FREIGHT SEPARATOR Scanned. Due on due Goal UDT. Due on due Goal Creatinine. Due on due Goal ALT (SGPT). Due on due Goal Order Annual PT. Due on due Goal OARS. Due on due Goal BLACK JACK DEALER Paperwork. Due on due Goal Medication Recon ciliation. Due on due Goal HPV. Due on due Goal Lipid panel. Due on due Goal Update Social Hi story. Due on due Goal Weight. Due on d ue Goal Height. Due on d ue Goal Tobacco Use. Due on due Goal Review Allergy L ist. Due on due Goal PHQ-9. Due on du e Goal Hepatitis C scre ening. Due on due Goal Unhealthy drug u se screening. Due on due Goal FREIGHT SEPARATOR Scanned. Due on due Goal UDT. Due on due Goal Creatinine. Due on due Goal ALT (SGPT). Due on due Goal AST (SGOT). Due on due Goal Order Annual PT. Due on due Goal OARS. Due on due Goal BLACK JACK DEALER Paperwork. Due on due Goal Update Social Hi story. Due on due Goal Weight. Due on d ue Goal Height. Due on d ue Goal Tobacco Use. Due on due Goal Review Allergy L ist. Due on due Goal PHQ-9. Due on du e Goal Hepatitis C scre ening. Due on due Goal Unhealthy drug u se screening. Due on due Goal Medication Recon ciliation. Due on due Goal HPV. Due on due Appointment Isha Galvan See Details BOOKED Appointment Isha Galvan BOOKED Future Order: Radiology Order EM G, 4 Limbs ([id number]), Ordered on: Ordered Future Order: Radiology Order MR I Cervical Spine W/O Dye ([id number]), Ordered on: Ordered Future Order: Lab Order Drug Tram t Def 22+ Classes ([id number]), Ordered on: Ordered History Of Present Illness Encounter Date Complaint History Of Prese nt Illness low back pain Severity level i s 6. Duration: chronic. It occurs persistently. The client describes the pain as an ache, burning, sharp and tingling. Symptoms are aggravated by ascending stairs, bending, descending stairs, lifting, running, standing, prolonged positioning and housework. Symptoms are relieved by heat, massage, pain meds/drugs, rest and changing positions. Comments: Justyna henderson is a 42 y/o female who presents for follow up and pain management in the setting of chronic migraines and low back pain with radiation into the legs. Pain has been fluctuating this month. Neck no longer bothers her. Primary concern is her L low back and anterior LLE down to her foot. Reports her feet feel like they are falling asleep. Endorses insomnia d/t pain. She wakes up multiple times a night.S/p 01/03/2023 C7-T1 Interlaminar Epidural Steroid Injection with 75% pain relief. States she no longer notices neck pain on a daily basis.S/p 12/27/2022 Bilateral Sacroiliac Joint Injection that worsened pain after procedure. States that pain subsided after a week. Notices minimal pain relief with pain returning over time. She d/c celebrex d/t SE of nausea. Pt shows interest in Ubrelvy for abortive migraine relief. Reports current medication regimen provides significant pain relief and allows for increased functionality. Continues to utilize Cord and medical cannabis with significant benefit. Denies OIC or other side effects from current medication regimen. No other concerns today. Comments: Justyna henderson is a 42 y/o female who presents for follow up and pain management in the setting of chronic migraines and low back pain with radiation into the legs. Pain has been fluctuating this month. Denies any new symptoms or changes in regards to her chronic pain. S/p bilateral L3, L4, L5 RFA on 11/25/2022. Reports increased pain in her mid back, . Reports left buttock pain, causing difficulty driving with intermittent spasms. Pain was present prior to RFA. Denies LE weakness.She continues PT at [facility] weekly. States that one of her legs is shorter than the other and she was given a shoe lift at PT.She has not yet been able to schedule her EMG with Neurology or seen neurology Headaches and migraines are currently manageable with Celebrex and Emgality. States she has a headache and neck pain today but it is manageable. Interested in pursuing cervical interventions for neck pain .Reports current medication regimen provides significant pain relief and allows for increased functionality. Rates her pain as 6/10 without medications and 2/10 with medications. Continues to utilize Cord 5-325mg and medical cannabis with significant benefit. Denies OIC or other side effects from current medication regimen. No other concerns today. low back pain Severity level i s 2. Duration: chronic. The problem is stable. It occurs persistently. The client describes the pain as an ache, sharp and tingling. Symptoms are aggravated by bending, lifting, sitting, twisting, housework, prolonged positioning and movement. Symptoms are relieved by pain meds/drugs. Comments: Justyna henderson is a 42 y/o female who presents for follow up and pain management in the setting of chronic migraines and low back pain with radiation into the legs. Pain has been fluctuating this month. Denies any new symptoms or changes in regards to her chronic pain. Does note her mid and upper back is most bothersome today. Intermittent spasms.She is scheduled for a BL L4-L5, L5-S1 RFA on 11/25/[address] Alejandra. Noted her arms and feet constantly falling asleep at [facility], stable today. Neurology referral for EMG was sent at [facility], but she has not yet scheduled or followed up. Headaches and migraines are currently manageable with Celebrex and Emgality. Notes she administered the Emgality recently which have prevented any migraines from being debilitating. Believes the injectable have been beneficial. Of note, she recently arrived back from a mission trip to [place]. Had increased pain due to having to drive for several hours.Reports current medication regimen provides significant pain relief and allows for increased functionality. Rates her pain as 8/10 without medications and 5/10 with medications. Continues to utilize Cord 5-325mg and medical cannabis with significant benefit. Denies OIC or other side effects from current medication regimen. No other concerns today. low back pain Severity level i s 5. Duration: chronic. It occurs persistently. The client describes the pain as an ache and sharp. Symptoms are aggravated by bending, lifting, lying/rest, running, sitting, twisting and stairs. Symptoms are relieved by pain meds/drugs. low back pain Severity level i s 4. Duration: chronic. The problem is fluctuating. It occurs persistently. The client describes the pain as an ache, burning, sharp and tingling. Symptoms are aggravated by bending, lifting, lying/rest, sitting and twisting. Symptoms are relieved by pain meds/drugs. Comments: Justyna henderson is a 42 y/o female who presents for follow up and pain management in the setting of chronic migraines and low back pain with radiation into the legs. Pain has been fluctuating this month. Denies any new symptoms or changes in regards to her chronic pain. S/p BL L4-L5, L5-S1 Confirmatory RFW on 10/12/[address] Alejandra provided 80% relief. Have noticed her arms and feet constantly falling asleep following the Diagnostic RFW. Notes the symptoms began on 10/09/22. She states she has a prior history of being electrocuted when she was 12 y/o. Believes she can sometimes feel "shocks traveling through her body.R sided neck pain with frequent falling asleep of the arms have been the most bothersome. per pt recent cervical MRI with [facility] with results showing disc bulging, without neural impingement. discussed seeing neurology parasthesias on hands and feet-she agrees, referral written to [facility] neurology. Notes her head feels heavy which forces her to constantly rotate her head. PT has been ordered by PCP, pt to start at [facility]. Headaches and migraines are currently manageable with Celebrex and Emgality. Notes she administered the Emgality recently which have prevented any migraines from being debilitating. Believes the injectable have been beneficial. Reports current medication regimen provides significant pain relief and allows for increased functionality. Rates her pain as 8/10 without medications and 4/10 with medications. Continues to utilize Cord 5-325mg and medical cannabis with significant benefit. Denies OIC or other side effects from current medication regimen. No other concerns today. low back pain Severity level i s 5. Duration: chronic. The problem is stable. It occurs persistently. The client describes the pain as an ache, sharp and tingling. Symptoms are aggravated by bending, lifting, lying/rest, sitting and twisting. Symptoms are relieved by pain meds/drugs and rest. Comments: Justyna henderson is a 41 y/o female who presents for follow up and pain management in the setting of chronic migraines and low back pain with radiation into the legs. Pain has been stable this month. Denies any new symptoms or changes. BL L4-L5, L5-S1 Diagnostic RFW scheduled on 10/05/[address] Alejandra.Ongoing headaches and migraines continues to persists along with R sided neck pain. Notes there are times where she feels nauseous to the point she'll throw up. Have been using Celebrex but is unsure about the benefit at this time. 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 Reports current medication regimen provides moderate pain relief and allows for increased functionality. Continues to utilize medical cannabis HS with moderate benefit. Willing to have [facility] take over prescribing the Cord 5-325mg. Denies other side effects from current medication regimen. No other concerns today. low back pain Severity level i s 3. Duration: chronic. The problem is worsening. It occurs persistently. The client describes the pain as an ache, sharp and tingling. Symptoms are aggravated by lying/rest. Symptoms are relieved by pain meds/drugs. Comments: Justyna henderson is a 41 y/o female who presents for follow up and pain management in the setting of chronic migraines and low back pain with radiation into the legs. She was last seen on 10/08/19. Pain has been worse this month. Have received an LESI in the last few months. Neck and upper back pain with radiation into the shoulder blades has been the most bothersome. Notes she has obtained updated imaging of the back on 08/08/22 at [facility]. Per patient's report, MRI results showed bone spurs at the T8-T9 levels. Patient continues to complain of ongoing migraines which occurs 2-3x/week. Denies being on a current migraine medication at this time. Notes she is willing to try a preventative medication to see if it will provide any benefit. headaches associated with migraines, N/VReports current medication regimen provides moderate pain relief and allows for increased functionality. Rates her pain as 8/10 without medications and 3/10 with medications. Have been utilizing medical cannabis HS with moderate benefit. Notes it makes her too sleepy during the day and inquires about other medications to help relieve her pain. Denies other side effects from current medication regimen. No other concerns today. low back pain Severity level i s [...] back pain and anxiety. She is going [place] in [place], denies major side effects from medical cannabis. [...] in the past. Treatment tried; PT at [facility] in 2018 which provided limited benefit. Most recent L4-5 TESI injection on 05/21/19 provided limited pain relief. Gabapentin - for RLS - not helping with pain.Topamax - could not tolerate d/t dizzinessRequesting [facility] to [facility] her medical cannabis for [...]
--- OUTSIDE RECORDS SUMMARY | 2023-01-23 19:17 | XMS_ITS | Continuity of Care Document ---
Author Name Unknown Organization [facility] enter Address [address] [place] [id number] Phone Care Team Providers Care Forming Machine Operator Name Role Phone [facility] Unavailable Unava ilable Procedures Procedure Date INTERLAMINAR CRV OR THRC INTERLAMINAR CRV OR THRC Inj for sacroiliac jt anesth Inj for sacroiliac jt anesth RF Lumb/Sacral Single Level BILATERAL Ju RF Lumb/Sacral 2nd Level RIGHT RF Lumb/Sacral 2nd Level LEFT 3 RF Lumb/Sacral Single Level BILATERAL Ju Facet Jt Inj Lumbar LEFT Facet Jt Inj Lumbar RIGHT Facet Inj Lumbar 2nd Level LEFT 023 Facet Inj Lumbar 2nd Level RIGHT 2022 Facet Jt Inj Lumbar LEFT Facet Jt Inj Lumbar RIGHT Facet Inj Lumbar 2nd Level LEFT 023 Facet Inj Lumbar 2nd Level RIGHT 2022 Advance Directives Directive Yes / No Effective Date File Name No Information Encounters Encounter Description Practice Location Reason(s) For Visit Diagnoses Date Provider Providers Copied on Encounter [facility], [address] [place] [address], [id number], tel:[phone] [facility] No Information 3 [facility]. [address] [place] [address], [id number], [place]. tel:[phone] Referring Provider: Taco Reina, [address] [place], [address] . tel:[phone] [facility], [address] [place] [address], [id number], tel:[phone] [place] [address] No Information 3 [facility]. [address] [place] [address], [id number], [place]. tel:[phone] Referring Provider: Taco Reina, [address] [place], [address] . tel:[phone] [place] [address], [address] [place] [address], [id number], tel:[phone] [place] [address] No Information 3 [facility]. [address] [place] [address], [id number], [place]. tel:[phone] Referring Provider: Neetu Alejandra, [address] [place], [address] . tel:[phone] [facility], [address] [place] [address], [id number], [place] tel:[phone] [place] [address] No Information 3 [facility]. [address] [place] [address], [id number], [place]. tel:[phone] Referring Provider: Neetu Alejandra, [address] [place], [address] . tel:[phone] [place] [address], [address] [place] [address], [id number], tel:[phone] [place] [address] No Information 3 [facility]. [address] [place] [address], [id number], [place]. tel:[phone] Referring Provider: Neetu Alejandra, [address] [facility] [place] [place], [address] . tel:[phone] Family History Family Member Type Diagnosis Age At Onset No Information Payers Payer name Insurance type Covered constitution party ID Authordarby martines(s) JUANCHOgloria [facility] [id number] Social History Type Description Quantity Date Captured Comments Sex Female Smoking Status No Information Chief Complaint And Reason For Visit No Information Reason For Referral Reason For Referral No Information History Of Present Illness Encounter Date Complaint History Of Prese nt Illness No Information Functional Status Date Functional Assessmen t No Information Instructions Date Instruction Additional Infor mation No Information Assessments Type Assessment Date No Information Patient Care Teams Name Effective Dates (start - stop) Status Members No Information
--- OUTSIDE RECORDS SUMMARY | 2023-01-23 19:17 | XMS_ITS | Continuity of Care Document ---
Author Name Unknown Organization [facility] Address [address] [place] [address] Care Team Providers Care Commercial Lines Sales Executive Name Role Phone Devon Roldan CRNA Unavailable Unavailable Procedures Procedure Date Percutaneous Image guided destruction pr ocedures B Advance Directives Directive Yes / No Effective Date File Name No Information Encounters Encounter Description Practice Location Reason(s) For Visit Diagnoses Date Provider Providers Copied on Encounter [facility], [address] [place], [place], [id number], [facility] No Information 3 Jamar Osorio. [address] [place], [place], [id number] , . tel:[phone] Referring Provider: Neetu Alejandra, [address] [facility] [place], [address] . tel:[phone] Family History Family Member Type Diagnosis Age At Onset No Information Payers Payer name Insurance type Covered green party ID Authorjonoa bobbi(s) Olena [facility] [id number] Social History Type Description Quantity Date Captured [...]
[2023-01-23 19:24] VITALS: BP 146/100; PULSE 80; RESP 20; TEMP 37.1; O2SAT 98; BMI 40.7
[2023-01-23 19:52] LABS: Basophils Absolute Auto 0.04 K/uL (0.00-0.30); Basophils Percent Auto 0.5 % (0.0-3.0); Eosinophils Percent Auto 2.5 % (0.0-7.0); Hematocrit 38.9 % (33.0-51.0); Hemoglobin* 13.3 gm/dL (12.0-16.0); Immature Granulocytes Abs Auto 0.05 K/uL (0.00-0.30); Immature Granulocytes Pct Auto 0.6 %; Lymphocytes Absolute Auto 2.34 K/uL (0.90-2.90); Lymphocytes Percent Auto 29.6 % (20-44); Mean Corpuscular HGB Conc 34 gm/dL (32-36); Mean Corpuscular Hemoglobin 28 pg (26-34); Mean Corpuscular Volume 81 fL (80-100); Monocytes Percent Auto 6.7 % (0.0-11.0); Neutrophils Absolute Auto 4.75 K/uL (1.7-7.0); Neutrophils Percent Auto 60.1 % (42.0-72.0); Platelet Count* 356 K/uL (140-440); RDW Coefficient of Variation % 12.2 % (11.5-15.5); Red Blood Count 4.83 m/uL (4.00-5.20); White Blood Count* 7.91 K/uL (4.50-11.00)
[2023-01-23 19:54] LABS: Slide Review Reflex No
--- NOTE | 2023-01-23 20:11 | ED.CHESTPAIN ---
HPI - Chest Pain General Chief Complaint: Chest Pain Stated Complaint: Chest pain Time Seen by Provider: 01/23/23 19:46 History of Present Illness HPI narrative: This 42-year-old female reports sharp pain in the substernal area that has been coming and going over the past few weeks. She does have a history of heartburn but states that this is more intense. She has had some nausea and vomiting but no diaphoresis, lightheadedness, shortness of breath, or report of exercise intolerance. She states that this pain has kept her awake at night at times and seems to come and go randomly. She does not have any major cardiac risk factors. Related Data Home Medications Medication Instructions Recorded Confirmed fluoxetine 20 mg capsule 20 mg PO QAM 09/19/22 09/19/22 Emgality Pen 01/23/23 Ubrelvy 01/23/23 hydrocodone-acetaminophen .ROUTE 01/23/23 Previous Rx's Medication Instructions Recorded albuterol sulfate 90 mcg/actuation 2 puff inhalation Q4-6H PRN 02/27/22 aerosol inhaler shortness of breath or wheezing #6.7 grams benzonatate 200 mg capsule 200 mg PO BID-TID PRN cough #14 02/27/22 caps benzonatate 200 mg capsule 200 mg PO BID-TID PRN cough #20 07/17/22 caps omeprazole 40 mg capsule,delayed 40 mg PO DAILY #20 caps 01/23/23 release Allergies Allergy/AdvReac Type Severity Reaction Status Date / Time No Known Drug Allergies Allergy Verified 01/23/23 19:29 Review of Systems Status of ROS Reports: 10 or more systems reviewed and unremarkable except as noted in History and below Narrative Constitutional: No fevers, no weight gain or loss. Eyes: No discharge. No vision changes. HENT: No congestion, no sore throat, no ear pain. Cardiovascular: No palpitations. Chest discomfort as described above. Respiratory: No shortness of breath, no wheezes, no cough. Gastrointestinal: No abdominal pain, no vomiting, no diarrhea. Genitourinary: No dysuria, no hematuria. Musculoskeletal: Normal range of motion. She has chronic back pain and goes to a pain clinic. Skin: No rashes, no pruritis. Neurological: No dizziness, weakness, sensory change, speech change. Endo/Heme/Allergies: No bruising or bleeding. No polydipsia. Pysch: no suicidality, no anxiety, no insomnia. All other systems reviewed and are negative. [facility] Medical History Ovarian cyst ?N83.209 - Unspecified ovarian cyst, unspecified side (ICD-10) Kidney stones ?N20.0 - Calculus of kidney (ICD-10) Surgical History History of cholecystectomy Social History Smoking Status: Never smoker Do you use any of these nicotine containing products: None Second hand tobacco smoke exposure: No How often do you have a drink containing alcohol: never AUDIT-C Alcohol total score: 0 Non-prescribed substance use: denies use service: No Exam Narrative Exam Narrative: Constitutional: Well-developed, well-nourished, no acute distress. HEENT: Normocephalic, atraumatic. Neck: Normal range of motion. Nontender. Supple. Heart: Regular. No murmurs. Normal rate. Intact distal pulses. Lungs: Clear to auscultation. No chest discomfort. No wheezes, rhonchi, or rales. Chest: Pain along the sternum. Pain is not reproducible with palpation or with certain movements. Abdomen: Normal bowel sounds. Nontender. No rebound tenderness. Genitalia: Deferred. Back: No midline tenderness. Normal range of motion. Extremities: Normal range of motion. No injury. Skin: Intact. No rash. Warm. No erythema or pallor. Neurologic: No altered sensation. No weakness. Alert and oriented. Psychiatric: No suicidality. No anxiety or depression. No insomnia. Nursing notes and vitals signs are reviewed. Const Vital Signs, click to edit/add: Vital Signs - 24 hr 01/23/23 19:24 Temperature 98.8 F Pulse Rate [Pulse Oximeter] 80 Respiratory Rate 20 Blood Pressure [Right Upper Arm] 146/100 H Pulse Oximetry 98 Course Vital Signs Vital signs: Initial Vital Signs Temperature 98.8 F 01/23/23 19:24 Temperature Source Temporal Artery Scan 01/23/23 19:24 Pulse Rate 80 01/23/23 19:24 Pulse Rhythm Regular 01/23/23 19:24 Respiratory Rate 20 01/23/23 19:24 Blood Pressure 146/100 H 01/23/23 19:24 Blood Pressure Mean 115 H 01/23/23 19:24 Blood Pressure Position Sitting 01/23/23 19:24 Pulse Oximetry 98 01/23/23 19:24 Vital Signs Temperature 98.8 F 01/23/23 19:24 Pulse Rate 80 01/23/23 19:24 Respiratory Rate 20 01/23/23 19:24 Blood Pressure 146/100 H 01/23/23 19:24 Pulse Oximetry 98 01/23/23 19:24 Temperature 98.8 F 01/23/23 19:24 Pulse Rate 80 01/23/23 19:24 Respiratory Rate 20 01/23/23 19:24 Blood Pressure 146/100 H 01/23/23 19:24 Pulse Oximetry 98 01/23/23 19:24 MDM - Chest Pain MDM Narrative Medical decision making narrative: This patient reports chest pain that is suspicious for reflux esophagitis. Her EKG today shows normal sinus rhythm without any ST or T-wave abnormalities. Labs are acquired also and these returned with reassuring results including a troponin that returns at 0. The patient did receive Maalox Plus which brought some relief to her symptoms. A GI cocktail is not available at this time. The patient is taking Prilosec. I encouraged her to double the dose by taking it twice daily for a week or so. She states that she has had an upper endoscopy in the past but does not remember the results. This was done a couple years ago. At the time of discharge the patient appears safe for outpatient management. The treatment plan is reviewed along with written and verbal return precautions. Reasons to return and the importance of close followup were also reviewed. She received a prescription for more tablets of Prilosec. Lab Data Labs: Lab Results 01/23/23 01/23/23 Range/Units 19:36 19:45 WBC 7.91 (4.50-11.00) K/uL RBC 4.83 (4.00-5.20) m/uL Hgb 13.3 (12.0-16.0) gm/dL Hct 38.9 (33.0-51.0) % MCV 81 (80-100) fL MCH 28 (26-34) pg MCHC 34 (32-36) gm/dL RDW Coeff of Allen 12.2 (11.5-15.5) % Plt Count 356 (140-440) K/uL Neut % (Auto) 60.1 (42.0-72.0) % Lymph % (Auto) 29.6 (20-44) % [place] % (Auto) 6.7 (0.0-11.0) % Eos % (Auto) 2.5 (0.0-7.0) % Baso % (Auto) 0.5 (0.0-3.0) % Neut # (Auto) 4.75 (1.7-7.0) K/uL Lymph # (Auto) 2.34 (0.90-2.90) K/uL [place] # (Auto) 0.50 (0.00-0.90) K/UL Eos # (Auto) 0.20 (0.00-0.50) K/uL Baso # (Auto) 0.04 (0.00-0.30) K/uL Abs Immat Gran (auto) 0.05 (0.00-0.30) K/uL Imm/Tot Granulo (auto) 0.6 % Sodium 141 (135-149) mmol/L Potassium 3.6 (3.6-5.1) mmol/L Chloride 108 (96-114) mmol/L Carbon Dioxide 27 (20-32) mmol/L Anion Gap 6 L (7-15) mEq/L BUN 18 (5-24) mg/dL Creatinine 0.9 (0.5-1.5) mg/dL Estimated Creat Clear 68.73 Estimated GFR 83 ml/min Glucose 81 (60-115) mg/dL Calcium 9.6 (8.4-10.6) mg/dL POC Troponin I 0.00 L (0.01-0.04) ng/ml ECG Data Attestation: I personally reviewed and interpreted this ECG as follows: Interpretation: Normal sinus rhythm. Rate is 67 beats per minute. There are no ST or T-wave abnormalities. Discharge Plan Discharge Clinical Impression: Esophagitis, reflux Patient Disposition: Home, Self-Care Condition: Stable Additional Instructions: Take Prilosec twice daily for 7-10 days. Then resume to once daily if improved. Follow up with MD or return if symptoms are persistent or worsening. Prescriptions: New omeprazole 40 mg capsule,delayed release(DR/EC) 40 mg PO DAILY Qty: 20 2RF No Action benzonatate 200 mg capsule 200 mg PO BID-TID PRN (Reason: cough) Qty: 20 0RF albuterol sulfate 90 mcg/actuation HFA aerosol inhaler 2 puff inhalation Q4-6H PRN (Reason: shortness of breath or wheezing) Qty: 6.7 0RF benzonatate 200 mg capsule 200 mg PO BID-TID PRN (Reason: cough) Qty: 14 0RF fluoxetine 20 mg capsule 20 mg PO QAM Emgality Pen Ubrelvy hydrocodone-acetaminophen [Vicodin ES] .ROUTE Follow Up/Referrals: Joan Vallecillo PAShin [Primary Care Provider] - Stand Alone [facility] Info Inst[facility]
[2023-01-23 20:13] LABS: Chloride* 108 mmol/L (96-114)
[2023-01-23 20:14] LABS: Potassium* 3.6 mmol/L (3.6-5.1); Sodium* 141 mmol/L (135-149)
[2023-01-23 20:16] LABS: Creatinine* 0.9 mg/dL (0.5-1.5); Est. Creatinine Clearance* 68.73; Estimated Glomerular Filt Rate 83 ml/min
[2023-01-23 20:17] LABS: Anion Gap 6 mEq/L (7-15); Blood Urea Nitrogen* 18 mg/dL (5-24); Calcium* 9.6 mg/dL (8.4-10.6); Carbon Dioxide* 27 mmol/L (20-32); Glucose* 81 mg/dL (60-115)
[2023-01-23] MEDS: MAG HYDROX/ALUMINUM HYD/SIMETH 30 ML ORAL.SUSP 15 ML PO (20:23)
--- OUTSIDE RECORDS SUMMARY | 2023-01-23 20:31 | XMS_ITS | Continuity of Care Document ---
Author Name Unknown Organization [facility] Address [address] [place] [address] Care Team Providers Care Gun Stock Checker Name Role Phone Devon Roldan CRNA Unavailable Unavailable Procedures Procedure Date Percutaneous Image guided destruction pr ocedures B Advance Directives Directive Yes / No Effective Date File Name No Information Encounters Encounter Description Practice Location Reason(s) For Visit Diagnoses Date Provider Providers Copied on Encounter [facility], [address] [place], [place], [id number], [facility] No Information 3 Jamar Osorio. [address] [place], [place], [id number] , . tel:[phone] Referring Provider: Neetu Alejandra, [address] [facility] [place], [address] . tel:[phone] Family History Family Member Type Diagnosis Age At Onset No Information Payers Payer name Insurance type Covered libertarian ID Authorjonoa bobbi(s) Olena [facility] [id number] Social History Type Description Quantity Date Captured [...]
--- OUTSIDE RECORDS SUMMARY | 2023-01-23 20:31 | XMS_ITS | Continuity of Care Document ---
Author Name Unknown Organization [facility] enter Address [address] [place] [phone] Phone Care Team Providers Care Overlock Collar Setter Name Role Phone [facility] Unavailable Unava ilable Procedures Procedure Date INTERLAMINAR [...] Diagnoses Date Provider Providers Copied on Encounter [facility], [address] [place] [address], [id number], tel:[phone] [facility] No Information 3 [facility]. [address] [place] [address], [id number], [place]. tel:[phone] Referring Provider: Taco Reina, [address] [place], [address] . tel:[phone] [facility], [address] [place] [address], [id number], tel:[phone] [place] [address] No Information 3 [facility]. [address] [place] [address], [id number], [place]. tel:[phone] Referring Provider: Taco Reina, [address] [place], [address] . tel:[phone] [place] [address], [address] [place] [address], [id number], tel:[phone] [place] [address] No Information 3 [facility]. [address] [place] [address], [id number], [place]. tel:[phone] Referring Provider: Neetu Alejandra, [address] [place], [address] . tel:[phone] [facility], [address] [place] [address], [id number], [place] tel:[phone] [place] [address] No Information 3 [facility]. [address] [place] [address], [id number], [place]. tel:[phone] Referring Provider: Neetu Alejandra, [address] [place], [address] . tel:[phone] [place] [address], [address] [place] [address], [id number], tel:[phone] [place] [address] No Information 3 [facility]. [address] [place] [address], [id number], [place]. tel:[phone] Referring Provider: Neetu Alejandra, [address] [place], [address] . tel:[phone] Family History Family Member Type Diagnosis Age At Onset No Information Payers Payer name Insurance type Covered green party ID Authordarby martines(s) JUANCHOgloria [facility] [id number] Social History Type Description Quantity Date Captured [...]
--- OUTSIDE RECORDS SUMMARY | 2023-01-23 20:31 | XMS_ITS | Continuity of Care Document ---
Author Name Unknown Organization [facility] [employer] Address [address] [facility] [place] [address] Phone Care Team Providers Care Gastrointestinal Technician Name Role Phone Florina De Guzman CNP [...] Level BILATE RAL OFFICE/OUTPATIENT VISIT, EST Drug Urine Toxology With Chromatography Drug test def 8-14 classes OFFICE/OUTPATIENT VISIT, EST OFFICE VISIT, EST TELEMEDICINE OFFICE/OUTPATIENT VISIT, EST Drug Urine Toxology With Chromatography OFFICE/OUTPATIENT VISIT, NEW Alcohol/drug screening Advance Directives Directive Yes / No Effective Date File Name No Information Encounters Encounter Description Practice Location Reason(s) For Visit Diagnoses Date Provider Providers Copied on Encounter [facility], [address] [place] [address], [id number] , [place] tel:[phone] [facility] [place] No Information 3 Gege Heaton. [address] [place], [place], [id number] , [place]. tel:[phone] OFFICE/OUTPAT IENT VISIT, EST [facility], [address] [place], [place], [id number] , [place] tel: [phone] [facility] low back pain (chief complaint) intermediate (current) use of opiate analgesicChronic migraine w/o aura, intractable, w/o stat migrChronic pain syndromeSacroilii tis, not elsewhere classifiedRadicul opathy, cervicothoracic regionRadiculopat hy, lumbar regionParesthesia of skinEncounter for therapeutic drug level monitoring Sep-0 3 Jan Martinez. [address] [facility] [address], [place], [place], [id number] , [place]. tel:[phone] Referring Provider: Taco Xiong, [address] [place] [address], [id number]. tel:[phone] [facility], [address] [place] [address], [id number] , [place] tel:[phone] [facility] No Information Sep-0 3 Jan Martinez. [address] [facility] [address], [place], [place], [id number] , [place]. tel:[phone] [facility], [address] [place] [address], [id number] , [place] tel:[phone] [facility] Radiculopathy, cervicothoracic region 3 Latosha España. [address] [place] [address], [id number] , [place]. tel:[phone] Referring Provider: Taco Xiong, [address] [place] [address], [id number]. [phone] [facility], [address] [place] [address], [id number] , [place] tel:[phone] [facility] Sacroiliitis, not elsewhere classified 3 Latosha España. [address] [place] [address], [id number] , [place]. tel:[phone] Referring Provider: Taco Xiong, [address] [place] [address], [id number]. [phone] OFFICE/OUTPAT IENT VISIT, EST [facility], [address] [place] [address], [id number] , [place] tel:[phone] [facility] low back pain (chief complaint) Chronic migraine w/o aura, intractable, w/o stat migrChronic pain syndromeOther spondylosis, lumbar regionRadiculopat hy, cervicothoracic regionRadiculopat hy, lumbar regionParesthesia of skinLong term (current) use of opiate analgesicSacroili itis, not elsewhere classified 3 Nyongesa Michelle. [address] [facility] [address], [place], [id number] , [place]. tel:[phone] Referring Provider: Taco Xiong, [address] [place] [address], [id number]. [phone] [facility], [address] [place] [address], [id number] , [place] [phone] [facility] Other spondylosis, lumbar region 3 Ny De Anda. [address] [place] [address], [id number] , [place]. tel:[phone] Referring Provider: Taco Xiong, [address] [place] [address], [id number]. [phone] OFFICE/OUTPAT IENT VISIT, [facility], [address] [place] [address], [id number] , [place] tel:[phone] [facility] low back pain (chief complaint) Chronic migraine w/o aura, intractable, w/o stat migrChronic pain syndromeOther spondylosis, lumbar regionRadiculopat hy, cervicothoracic regionRadiculopat hy, lumbar regionParesthesia of skinLong term (current) use of opiate analgesic 3 Nyongesa Michelle. [address] [facility] [address], [place], [id number] , [place]. [phone] Referring Provider: Taco Xiong, [address] [place] [address], [id number]. tel:[phone] OFFICE/OUTPAT IENT VISIT, [facility], [address] [place] [address], [id number] , [place] tel:[phone] [facility] [place] low back pain (chief complaint) Chronic migraine w/o aura, intractable, w/o stat migrChronic pain syndromeOther spondylosis, lumbar regionRadiculopat hy, cervicothoracic regionRadiculopat hy, lumbar regionLong term (current) use of opiate analgesicParesthe alfonzo of skin 3 Nyongesa Michelle. [id number] [place] [address] [address], [place], [id number] , [place]. tel:[phone] Referring Provider: Taco Xiong, [address] [place] [address], [id number]. [phone] [facility], [address] [place] [address], [id number] , [place] tel:[phone] [facility] Other spondylosis, lumbar region 3 Jan Michelle. [id number] [place] [address] [address] [facility] [address], [place], [id number] , [place]. tel:[phone] [facility], [address] [place] [address], [id number] , [place] tel:[phone] [facility] Other spondylosis, lumbar region 3 Ny De Anda. [address] [place] [address], [id number] , [place]. tel:[phone] Referring Provider: Taco Xiong, [address] [place] [address], [id number]. [phone] [facility], [address] [place] [address], [id number] , [place] tel:[phone] [facility] Other spondylosis, lumbar region 3 Nychachasa Michelle. [address] [place] [address] [address], [place], [id number] , [place]. tel:[phone] [facility], [address] [place] [address], [id number] , [place] tel:[phone] [facility] Other spondylosis, lumbar region 3 Ny De Anda. [address] [place] [address], [id number] , [place]. tel:[phone] Referring Provider: Taco Xiong, [address] [place] [address], [address]. tel:[phone] OFFICE/OUTPAT IENT VISIT, [facility], [address] [place] [address], [id number] , [place] tel:[phone] [facility] low back pain (chief complaint) Chronic migraine w/o aura, intractable, w/o stat migrChronic pain syndromeOther spondylosis, lumbar regionRadiculopat hy, cervicothoracic regionRadiculopat hy, lumbar regionLong term (current) use of opiate analgesic 3 Nyongesa Martinez. [id number] [place] [address] [address], [place], [id number] , [place]. tel:[phone] Referring Provider: Taco Xiong, [address] [place] [address], [id number]. tel:[phone] [facility], [address] [place] [address], [id number] , [place] tel:[phone] [facility] No Information 3 Jan Martinez. [address] [place] [address] [address], [place], [id number] , [place]. tel:[phone] OFFICE/OUTPAT IENT VISIT, [facility], [address] [place] [address], [id number] , [place] [phone] [facility] low back pain (chief complaint) Chronic migraine w/o aura, intractable, w/o stat migrChronic pain syndromeRadiculop athy, lumbar regionRadiculopat hy, cervicothoracic regionLong term (current) use of opiate analgesicEncounte r for therapeutic drug level monitoringOther spondylosis, lumbar region 3 Jan Martinez. [address] [facility] [address], [place], [id number] , [place]. tel:[phone] Referring Provider: Taco Xiong, [address] [place] [address], [id number]. [phone] OFFICE VISIT, [facility] TELEMEDICINE [facility], [address] [place] [address], [id number] , [place] tel:[phone] [facility] low back pain (chief complaint) Other intervertebral disc degeneration, lumbar regionChronic migraine w/o aura, intractable, w/o stat migrChronic pain syndromeGERD without esophagitisOther terminal gauger (current) drug therapy 0 Nyongesa Michelle. [address] [facility] [address], [place], [place], [id number] , [place]. tel:[phone] Referring Provider: Taco Xiong, [address] [place] [address], [address]. [phone] OFFICE/OUTPAT IENT VISIT, [facility], [address] [place] [address], [id number] , [place] tel:[phone] [facility] Back Pain (chief complaint) Chronic pain syndromeOther intervertebral disc degeneration, lumbar regionChronic migraine w/o aura, intractable, w/o stat migrGERD without esophagitisSleep apnea, unspecifiedOther terminal gauger (current) drug therapy 0 Nyongesa Michelle. [address] [facility] [address], [place], [place], [id number] , [place]. tel:[phone] Referring Provider: Taco Xiong, [address] [place] [address], [address]. tel:[phone] OFFICE/OUTPAT IENT VISIT, [facility], [address] [place] [address], [id number] , [place] tel:[phone] [facility] Back Pain (chief complaint) Chronic pain syndromeOther intervertebral disc degeneration, lumbar regionChronic migraine w/o aura, intractable, w/o stat migrGERD without esophagitisSleep apnea, unspecifiedEncoun ter for screening for other disorderEncounter for therapeutic drug level monitoringOther detention (current) drug therapy 0 Nyongesa Michelle. [address] [facility] [address], [place], [id number] , [place]. tel:[phone] Referring Provider: Mick Murphy, [place] [address], [place], [address]. tel:[phone] Family History Family Member Type Diagnosis Age At Onset Mother Problem (finding) chronic pain Payers Payer name Insurance type Covered alliance party ID Suyapa martines(s) gloria [facility] [id number] Social History Type Description Quantity Date Captured Comments Sex Female Smoking Status No Information Chief Complaint And Reason For Visit No Information Reason For Referral Reason For Referral No Information Plan Of Treatment Date Type Action Status Goal OARS. Due on due Goal Order Annual PT. Due on due Goal AST (SGOT). Due on due Goal DISTRICT SUPERVISOR Paperwork. Due on due Goal ALT (SGPT). Due on due Goal INTRANET SPECIALIST Scanned. Due on 023 due Goal Creatinine. Due on due Goal UDT. Due on due Goal HPV. Due on due Goal Height. Due on d ue Goal PHQ-9. Due on du e Goal Medication Recon ciliation. Due on due Goal Hepatitis C scre ening. Due on due Goal Review Allergy L ist. Due on due Goal Unhealthy drug u se screening. Due on due Goal Weight. Due on d ue Goal Tobacco Use. Due on 023 due Goal Update Social Hi story. Due on due Goal Lipid panel. Due on due Goal INTRANET SPECIALIST Scanned. Due on due Goal ALT (SGPT). Due on due Goal AST (SGOT). Due on due Goal OARS. Due on due Goal Creatinine. Due on due Goal Order Annual PT. Due on due Goal DISTRICT SUPERVISOR Paperwork. Due on due Goal UDT. Due [...] Goal Height. Due on d ue Goal UDT. Due on due Goal INTRANET SPECIALIST Scanned. Due on due Goal DISTRICT SUPERVISOR Paperwork. Due on due Goal AST (SGOT). [...] Medication Recon ciliation. Due on due Goal INTRANET SPECIALIST Scanned. Due on due Goal DISTRICT SUPERVISOR Paperwork. Due on due Goal UDT. Due [...] C scre ening. Due on due Goal OARS. Due on due Goal ALT (SGPT). Due on due Goal DISTRICT SUPERVISOR Paperwork. Due on due Goal UDT. Due on due Goal Order Annual PT. Due on due Goal INTRANET SPECIALIST Scanned. Due on due Goal Creatinine. Due on due Goal AST (SGOT). Due on due Goal HPV. Due on due Goal Medication Recon ciliation. Due on due Goal Lipid panel. Due on due Goal Unhealthy drug u se screening. Due on due Goal Review Allergy L ist. Due on due Goal Height. Due on d ue Goal Hepatitis C scre ening. Due on due Goal Tobacco Use. Due on due Goal Update Social Hi story. Due on due Goal Weight. Due on d ue Goal PHQ-9. Due on du e Goal Order Annual PT. Due on due Goal OARS. Due on due Goal DISTRICT SUPERVISOR Paperwork. Due on due Goal AST (SGOT). Due on due Goal INTRANET SPECIALIST Scanned. Due on due Goal Creatinine. Due on due Goal UDT. Due on due Goal ALT (SGPT). Due on due Goal PHQ-9. Due on du e Goal Update Social Hi story. Due on due Goal Hepatitis C scre ening. Due on due Goal Review Allergy L [...] due Goal Creatinine. Due on due Goal INTRANET SPECIALIST Scanned. Due on due Goal DISTRICT SUPERVISOR Paperwork. Due on due Goal Update Social [...] Goal Tobacco Use. Due on due Goal INTRANET SPECIALIST Scanned. Due on due Goal UDT. Due on due Goal Creatinine. Due on due Goal ALT (SGPT). Due on due Goal AST (SGOT). Due on due Goal Order Annual PT. Due on due Goal OARS. Due on due Goal DISTRICT SUPERVISOR Paperwork. Due on due Goal Medication Recon [...] u se screening. Due on due Goal INTRANET SPECIALIST Scanned. Due on due Goal UDT. Due on due Goal Creatinine. Due on due Goal ALT (SGPT). Due on due Goal AST (SGOT). Due on due Goal Order Annual PT. Due on due Goal OARS. Due on due Goal DISTRICT SUPERVISOR Paperwork. Due on due Goal Medication Recon ciliation. Due on due Goal HPV. Due on due Goal Update Social Hi story. Due on due Goal Weight. Due on d ue Goal Height. Due on d ue Goal Tobacco Use. Due on due Goal Review Allergy L ist. Due on due Goal PHQ-9. Due on du e Goal Hepatitis C scre ening. Due on due Goal Unhealthy drug u se screening. Due on due Appointment Isha Galvan See [...] Date Complaint History Of Prese nt Illness Comments: Justyna henderson is a 42 y/o [...] allows for increased functionality. Continues to utilize [place] and medical cannabis with significant benefit. Denies [...] RFA. Denies LE weakness.She continues PT at [facility] weekly. States that one of her legs [...] and 2/10 with medications. Continues to utilize [place] 5-325mg and medical cannabis with significant benefit. [...] movement. Symptoms are relieved by pain meds/drugs. low back pain Severity level i s 5. Duration: chronic. It occurs persistently. The client describes the pain as an ache and sharp. Symptoms are aggravated by bending, lifting, lying/rest, running, sitting, twisting and stairs. Symptoms are relieved by pain meds/drugs. Comments: [...] arms and feet constantly falling asleep at [facility], stable today. Neurology referral for EMG was sent at [facility], but she has not yet scheduled or followed up. Headaches and migraines are currently manageable with Celebrex and Emgality. Notes she administered the Emgality recently which have prevented any migraines from being debilitating. Believes the injectable have been beneficial. Of note, she recently arrived back from a mission trip to [place]. Had increased pain due to having to drive for several hours.Reports current medication regimen provides significant pain relief and allows for increased functionality. Rates her pain as 8/10 without medications and 5/10 with medications. Continues to utilize [place] 5-325mg and medical cannabis with significant benefit. [...] bothersome. per pt recent cervical MRI with [facility] with results showing disc bulging, without neural impingement. discussed seeing neurology parasthesias on hands and feet-she agrees, referral written to [facility]. Notes her head feels heavy which forces her to constantly rotate her head. PT has been ordered by PCP, pt to start at [facility]. Headaches and migraines are currently manageable with Celebrex and Emgality. Notes she administered the Emgality recently which have prevented any migraines from being debilitating. Believes the injectable have been beneficial. Reports current medication regimen provides significant pain relief and allows for increased functionality. Rates her pain as 8/10 without medications and 4/10 with medications. Continues to utilize [place] 5-325mg and medical cannabis with significant benefit. [...] twisting. Symptoms are relieved by pain meds/drugs. low [...] time. She states she was unable to grain picker with Emgality due to it not being in stock. Reports current medication regimen provides moderate pain relief and allows for increased functionality. Continues to utilize medical cannabis HS with moderate benefit. Willing to have [facility] take over prescribing the [place] 5-325mg. Denies other side effects from current medication regimen. No other concerns today. Comments: Justyna henderson is a 41 y/o [...] imaging of the back on 08/08/22 at [facility]. Per patient's report, MRI results showed bone [...] lying/rest. Symptoms are relieved by pain meds/drugs. low back pain (comments) Patient is here and f/u on medical cannabis certification via [facility] visit.She has stopped taking tramadol due improved back pain and anxiety. She is going [place] in [place], denies major side effects from medical cannabis. She however wondering if medical cannabis is making her GERD worse.No other concerns low back pain Severity level i s mild-moderate. The problem is improving. It occurs persistently. Location of pain is lower back. Pain is radiated to the buttocks.The patient describes the pain as an ache and burning. Symptoms are aggravated by bending, lifting, twisting and walking. Symptoms are relieved by ice, pain meds/drugs, rest and medical cannabis. Back Pain (comments) Isha is here for [...] are relieved by massage. Back Pain (comments) Patient is here for [...] in the past. Treatment tried; PT at [facility] and [facility] in 2018 which provided limited benefit. Most recent L4-5 TESI injection on 05/21/19 provided limited pain relief. Gabapentin - for RLS - not helping with pain.Topamax - could not tolerate d/t dizzinessRequesting [facility] to certify her medical cannabis for chronic [...] touch her pain. No other concerns today. Back Pain Severity level [...] and walking. Symptoms are relieved by heat. Functional Status Date Functional Assessmen t No Information Instructions Date Instruction Additional Infor mation No Information Assessments Type Assessment Date No Information Patient Care Teams Name Effective Dates (start - stop) Status Members No Information
[2023-01-23 21:12] LABS: Lipase* 110 U/L (23-300)
== END 2023-01-23 21:12 | disposition home or self-care (01) ==
PROVIDERS: Emergency Provider Emergency Medicine Emergency Medical Services; PCP Physician Assistant Medical
DX: K21.00 Gastro-esophageal reflux disease with esophagitis, without bleeding (principal)
CPT/HCPCS: 36415; 80048; 83690; 84484; 85025; 93005; 99283; 99284; A9270